=== PATIENT | female | born 1985 ===

== ENCOUNTER 2020-01-30 21:02 | Emergency (ER) | payer MEDICAID ==
[~2020-01-30] VITALS: Ht 167.6 cm; Wt 91.8 kg
[2020-01-30 21:59] VITALS: BP 141/66
--- NOTE | 2020-01-30 22:25 | NUR ---
PT REQUESTING TO LEAVE AMA DUE TO "WAITING WAY TOO LONG." ALEX IZAGUIRRE MADE AWARE AND PT WAS ASKED TO WAIT LONGER, PT BECAME IMPATIENT AND REQUESTED TO LEAVE. AMA SIGNED. PT LEFT ED WITHOUT ISSUE. INFORMED TO RETURN TO AN ER IF ANY NEW SYMPTOMS ARISE AND TO FOLLOW UP WITH PCP AND HER SCHEDULED SONOGRAM IN THE AM.
== END 2020-01-30 22:39 | disposition left against medical advice (07) ==
LOC: ER 21:03
DX: O26.90 Pregnancy related conditions, unspecified, unspecified trimester (principal); Z3A.00 Weeks of gestation of pregnancy not specified; Z53.21 Procedure and treatment not carried out due to patient leaving prior to being seen by health care provider